=== PATIENT | male | born 1950 | race Caucasian/White ===

== ENCOUNTER 2017-06-21 11:54 | Inpatient (IN) | payer OTHER ==
[~2017-06-21] VITALS: Ht 180.3 cm; Wt 73.5 kg
[~2017-06-21 11:54] MED LIST: ALEN70TA5 PO; CHOL10003 PO; CYCL-259 PO; DOCU240C53 PO; FOLI-17 PO; LISI2.5T PO; OXYC1TAB7 PO; POLY17PO5 PO; PRED1DRO EACHEYE; SAXA5TAB PO; TOBR5DRO2 EACHEYE
[2017-06-21] MEDS ORDERED: LACTATED RINGERS 1,000 ML IV SCH (12:57)
[2017-06-21] MEDS ORDERED: LIDOCAINE 1%, 2ML SQ PRN (13:00)
[2017-06-21] MEDS ORDERED: OxyconTIN ER 10 MG TAB.ER PO ONE (13:00)
[2017-06-21] MEDS ORDERED: VANCOMYCIN PER PHARMACY MC ONE (13:08)
[2017-06-21 13:20] LABS: HIV 1&2 ANTIBODY SCREEN Nonreactive (Nonreactive); HIV-1 p24 ANTIGEN Nonreactive (Nonreactive)
[2017-06-21] MEDS ORDERED: PNEUMOCOCCAL 23 VACCINE IM-VACC ONE (13:30)
[2017-06-21] MEDS ORDERED: VANCOMYCIN 1,400 MG in SODIUM CHLORIDE 0.9% 250 ML IV ONE (13:30)
[2017-06-21] MEDS ORDERED: MIDAZOLAM 1 MG/ML, 2ML ONE (13:31)
[2017-06-21] MEDS ORDERED: FENTANYL PF 100 MCG/2ML ONE ×2 (13:31→17:43)
[2017-06-21] MEDS ORDERED: TRANEXAMIC ACID 100 MG/ML, 10ML ONE (14:31)
[2017-06-21] MEDS ORDERED: ROPIvacaine/PF 0.2%, 20 ML ONE (14:31)
[2017-06-21] MEDS ORDERED: KETOROLAC 60 MG/2 ML ONE (14:31)
[2017-06-21] MEDS ORDERED: EPINEPHRINE 1 MG/ML, 1ML ONE (14:32)
[2017-06-21] MEDS ORDERED: SODIUM CHLORIDE 0.9% 50 ML ONE (14:32)
[2017-06-21] MEDS: NS + 20MEQ KCL 1,000 ML IV SCH (14:39)
[2017-06-21] MEDS ORDERED: ONDANSETRON 2MG/ML, 2ML ONE (14:51)
[2017-06-21] MEDS ORDERED: CEFAZOLIN 1,000 MG ONE (14:51)
[2017-06-21] MEDS ORDERED: NEOSTIGMINE 1 MG/ML, 10ML ONE (14:51)
[2017-06-21] MEDS ORDERED: PROPOFOL 10 MG/ML, 20ML ONE (14:51)
[2017-06-21] MEDS ORDERED: DEXAMETHASONE 4 MG/ML, 1ML ONE (14:51)
[2017-06-21] MEDS ORDERED: HYDROmorphone 1 MG/ML, 1ML IV PRN ×2 (15:00)
[2017-06-21] MEDS ORDERED: VANCOMYCIN PER PHARMACY MC PRN (15:00)
[2017-06-21] MEDS ORDERED: hydrALAzine 20 MG/ML, 1ML IV PRN (15:00)
[2017-06-21] MEDS ORDERED: PROMETHAZINE 25 MG/ML, 1ML IV PRN (15:00)
[2017-06-21] MEDS ORDERED: DEXTROSE 4 GM TAB.CHEW PO PRN (15:00)
[2017-06-21] MEDS ORDERED: LABETALOL 5MG/ML, 20ML IV PRN (15:00)
[2017-06-21] MEDS ORDERED: PROMETHAZINE 12.5 MG SUPP PR PRN (15:00)
[2017-06-21] MEDS ORDERED: DEXTROSE 50%, 50ML SYRINGE IVPush PRN (15:00)
[2017-06-21] MEDS: CEFAZOLIN PMX 1GM/50ML 50 ML IVPB SCH ×2 (15:00→23:15)
[2017-06-21] MEDS ORDERED: GLUCAGON 1 MG IM PRN (15:00)
[2017-06-21] MEDS ORDERED: OXYcodone 5 MG/5 ML ORAL.SOL UDC PO PRN (15:00)
[2017-06-21] MEDS ORDERED: BISACODYL 10 MG SUPP PR PRN (15:00)
[2017-06-21] MEDS ORDERED: ONDANSETRON 4 MG TABLET PO PRN (15:00)
[2017-06-21] MEDS ORDERED: MEPERIDINE/PF 25MG/0.5ML IVPush PRN (15:00)
[2017-06-21] MEDS ORDERED: ONDANSETRON 2MG/ML, 2ML IVPush PRN (15:00)
[2017-06-21] MEDS ORDERED: DIPHENHYDRAMINE 50 MG CAPSULE PO PRN (15:00)
[2017-06-21] MEDS ORDERED: ACETAMINOPHEN 325 MG TABLET PO PRN ×2 (15:00)
[2017-06-21] MEDS ORDERED: MAGNESIUM HYDROXIDE 8%, 30ML UDC PO PRN (15:00)
[2017-06-21] MEDS ORDERED: ONDANSETRON 2MG/ML, 2ML IV PRN (15:00)
[2017-06-21] MEDS: INSULIN REGULAR 100 UNITS/ML, 3ML VIAL SQ-INSULIN SCH ×2 (16:00→21:00)
[2017-06-21] MEDS ORDERED: TRANEXAMIC ACID 1,000 MG in SODIUM CHLORIDE 0.9% 100 ML IV ONE (17:15)
[2017-06-21] MEDS ORDERED: OXYcodone 5 MG/5 ML ORAL.SOL UDC ONE (17:35)
[2017-06-21] MEDS ORDERED: ACETAMINOPHEN 650 MG/20.3 ML UDC ONE (17:36)
[2017-06-21] MEDS: FENTANYL PF 100 MCG/2ML IV PRN ×2 (17:45→17:55)
[2017-06-21] MEDS ORDERED: HYDROmorphone 1 MG/ML, 1ML ONE (18:00)
[2017-06-21 21:02] VITALS: BP 167/85
[2017-06-21] MEDS: SODIUM CHLORIDE FLUSH 10ML SYR IVF SCH (21:08)
[2017-06-21] MEDS ORDERED: CYCLOBENZAPRINE 10 MG TABLET PO PRN (21:30)
[2017-06-21] MEDS: DOCUSATE 100 MG CAPSULE PO SCH (21:56)
[2017-06-21] MEDS ORDERED: PHARMACOKINETIC MONITORING MC PRN (22:30)
[2017-06-21] MEDS ORDERED: PHARMACOKINETIC CONSULTATION MC ONE (22:30)
[2017-06-21] MEDS: DIAZEPAM 5 MG TABLET PO PRN (23:15)
[2017-06-21 23:30] VITALS: BP 150/76
[2017-06-22] MEDS: OXYcodone IR 5MG TABLET PO PRN ×4 (00:27→11:14)
[2017-06-22] MEDS: NS + 20MEQ KCL 1,000 ML IV SCH ×2 (00:39→10:39)
[2017-06-22] MEDS ORDERED: VANCOMYCIN PMX 1GM/200ML 200 ML IVPB SCH (02:00)
[2017-06-22 03:29] VITALS: BP 150/80
[2017-06-22] MEDS: DIAZEPAM 5 MG TABLET PO PRN (04:16)
[2017-06-22 05:24] LABS: HEMATOCRIT 35.1 % (39.2-51.8); HEMOGLOBIN 11.2 g/dL (13.7-18.0)
[2017-06-22] MEDS ORDERED: RIVAROXABAN 10 MG TABLET PO SCH (06:00)
[2017-06-22] MEDS ORDERED: DEXAMETHASONE 4 MG/ML, 1ML IVPush SCH (06:00)
[2017-06-22] MEDS: INSULIN REGULAR 100 UNITS/ML, 3ML VIAL SQ-INSULIN SCH ×2 (07:00→12:05)
[2017-06-22 08:27] VITALS: BP 146/74
[2017-06-22] MEDS ORDERED: CHOLECALCIFEROL 1,000 UNIT TABLET PO SCH (09:00)
[2017-06-22] MEDS ORDERED: POLYETHYLENE GLYCOL 17 GM PACKET PO SCH (09:00)
[2017-06-22] MEDS: DOCUSATE 100 MG CAPSULE PO SCH (09:00)
[2017-06-22] MEDS ORDERED: TAMSULOSIN 0.4 MG CAP.ER.24H PO SCH (09:00)
[2017-06-22] MEDS ORDERED: LISINOPRIL 5 MG TABLET PO SCH (09:00)
[2017-06-22] MEDS ORDERED: predniSOLONE OPHTH SUSP 1%, 5ML EACHEYE SCH (09:00)
[2017-06-22] MEDS ORDERED: TOBRAMYCIN/DEXAMETH OPHTH SUSP 2.5ML EACHEYE SCH (09:00)
[2017-06-22] MEDS: SODIUM CHLORIDE FLUSH 10ML SYR IVF SCH (09:13)
[2017-06-22] MEDS ORDERED: RIVA10TA PO (10:53)
[2017-06-22] MEDS ORDERED: ONDA4TAB10 PO (10:53)
[2017-06-22] MEDS ORDERED: TRAM50TA2 PO (10:54)
[2017-06-22] MEDS ORDERED: CELE200C PO (10:55)
[2017-06-22] MEDS ORDERED: DIAZ5TAB PO (10:56)
[2017-06-22] MEDS ORDERED: HYDROcodone/APAP 5/325 TABLET ONE (11:00)
[2017-06-22 12:40] VITALS: BP 142/75
[2017-06-22] MEDS ORDERED: KETOROLAC 30 MG/1 ML IV SCH (15:00)
[2017-06-22] MEDS ORDERED: DOCUSATE CALCIUM 240 MG CAPSULE PO SCH (21:00)
[2017-06-27] MEDS ORDERED: ALENDRONATE 70 MG TABLET PO SCH (06:30)
== END 2017-06-22 12:50 | disposition home or self-care (01) | DRG 469 ==
LOC: ORIP 11:54 → 4NOR 20:40
PROVIDERS: ADMIT Orthopaedic Surgery; ATTEND Orthopaedic Surgery
PROC: 0SR904Z Replacement of Right Hip Joint with Ceramic on Polyethylene Synthetic Substitute, Open Approach (ICD-10-PCS; principal; 2017-06-21 14:30)
DX: S72.001A Fracture of unspecified part of neck of right femur, initial encounter for closed fracture (principal); N17.0 Acute kidney failure with tubular necrosis; H54.0 Blindness, both eyes; W18.30XA Fall on same level, unspecified, initial encounter; M19.90 Unspecified osteoarthritis, unspecified site; M21.70 Unequal limb length (acquired), unspecified site; Z88.5 Allergy status to narcotic agent; Z88.8 Allergy status to other drugs, medicaments and biological substances; Y93.89 Activity, other specified; Z87.891 Personal history of nicotine dependence; Y92.89 Other specified places as the place of occurrence of the external cause
CPT/HCPCS: 36415; 72170; 82565; 82962; 85014; 85018; 86703; 86850; 86900; 87081; 87899; 90732; C1713; J0171; J0690; J1100; J1170; J1815; J1885; J2250; J2405; J2704; J2710; J2795; J3010; J3370; J3490; C1776; G0435; J7050; J7120